=== PATIENT | male | born 2000 | race Hispanic/Latino ===

== ENCOUNTER 2020-07-05 07:23 | Outpatient (CLI) | payer BC ==
[2020-07-05 16:31] LABS: #Eosinphils 0.3 10x3/uL (0.0-0.5); #Monocytes 0.6 10x3/uL (0.0-1.1); #Neutrophils 3.7 10x3/uL (1.5-8.4); %Basophils 0.6 % (0.0-2.0); %Eosinophils 3.5 % (0.0-6.0); %Lymphocytes 35.5 % (18.0-47.0); %Monocytes 8.7 % (0.0-10.0); %Neutrophils 51.3 % (40.0-75.0); Hemoglobin 15.8 g/dL (14.0-18.0); Mean Corpuscular HGB CONC 35.5 G/DL (32.0-36.0); Mean Corpuscular Hemoglobin 30.2 PG (27.0-33.0); Mean Corpuscular Volume 84.9 fl (80.0-100.0); Mean Platelet Volume 12.6 fl (7.4-10.4); Platelet Count 236 10x3/uL (130-400); RBC Distribution Width 11.5 % (11.5-14.5); Red Blood Cell (RBC) Count 5.24 10x6/uL (4.40-5.80); White Blood Cell (WBC) Count 7.2 10x3/uL (4.5-11.0)
[2020-07-06 05:43] LABS: SARS-CoV-2 MS2 Positive; SARS-CoV-2 N Gene Negative; SARS-CoV-2 S Gene Negative; SARS-CoV-2 by NAA Not Detected (NotDetected); SARS-CoV-2 orf1ab Negative
== END 2020-07-05 07:24 | disposition home or self-care (01) ==
LOC: LABBT 07:23
PROVIDERS: ATTEND Orthopaedic Surgery
DX: Z01.812 Encounter for preprocedural laboratory examination (principal); Z20.828 Contact with and (suspected) exposure to other viral communicable diseases; S83.242A Other tear of medial meniscus, current injury, left knee, initial encounter
CPT/HCPCS: 85025; 87635; U0003

== ENCOUNTER 2020-07-08 10:53 | Day surgery (SDC) | payer BC ==
[2020-07-07 10:14] VITALS: BMI 25.0
[2020-07-08] MEDS ORDERED: Dexamethasone 20 MG/5 ML VIAL ONE (12:50)
[2020-07-08] MEDS ORDERED: Ondansetron PF 4 MG/2 ML Vial ONE (12:50)
[2020-07-08] MEDS ORDERED: PROPOFOL 200 MG/20 ML VIAL ONE (12:50)
[2020-07-08] MEDS ORDERED: Fentanyl 100 MCG/2 ML VIAL ONE ×2 (14:51→15:34)
[2020-07-08] MEDS ORDERED: Bupivacaine 0.25% HCL 30 ML VIAL ONE (15:31)
[2020-07-08] MEDS ORDERED: Bupivacaine PF 0.5% 30 ML VIAL ONE (15:31)
[2020-07-08] MEDS ORDERED: Meperidine HCl/PF 25 MG/ML VIAL ONE (16:41)
--- NOTE | 2020-07-10 14:13 | OP ---
DATE OF PROCEDURE: 07/08/2020 PREOPERATIVE DIAGNOSES: 1. Left knee medial meniscus tear with root tear. 2. Left horizontal tear. POSTOPERATIVE DIAGNOSES: 1. 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 2. A horizontal meniscal tear with horizontal cleavage component. PROCEDURE PERFORMED: Medial and lateral meniscectomy. LICENSED OCCUPATIONAL THERAPIST: Leonides Tamayo MD ANESTHESIA: Erich Lu CRNA. The patient received LMA. ESTIMATED BLOOD LOSS: Less than 20 mL. TOURNIQUET TIME: 25 minutes at 300 mmHg. ANTIBIOTICS: Ancef 2 g. IMPLANTS: None. COMPLICATION: None. HISTORY OF PRESENT ILLNESS: Mr. Soriano is a 20-year-old male status post injury to his left knee that has been present for a prolonged period of time. The patient felt like he injured in the past and re-injured it. MRI had evidence of medial lateral meniscus tears as well as concern for a root tear; therefore, I had my partner, Dr. Tamayo available to help me repair his bucket-handle medial meniscus tear. I discussed with the patient the risks and benefits of surgery to include pain, scar, bleeding, infection, damage to vital structures, decreased range of motion and strength, arthritis, need for further surgeries, loss of life or limb, the patient's family understood the risks and benefits of procedure and elected to proceed. DESCRIPTION OF PROCEDURE: Time-out was performed designating the patient's left lower extremity as the operative site based on site, consents, and marking. After time-out, the patient's right upper extremity was prepped and draped in sterile fashion. Tourniquet was left up for a total of 25 minutes. We made an anterior medial incision, dissected down bluntly to the fat pad, ensured that we were in the right good position. We then made our second anterior medial portal under direct visualization more medial to the tendon. We came down, excised on to the fat pad, took pictures of the ACL, the PCL. We looked at the superior fat pad as well as superior to the patellofemoral joint, the medial lateral gutters, which showed no defect. We ooked in the lateral compartment in [id number] position and saw horizontal tear which was slightly unstable. We took our biter and removed the torn component and cleaned it to a stable remnant. There was a horizontal cleavage component. We made sure we debrided to stable remnant for no recurrent tear. After this, we took final pictures and moved medially. Medially, it looked like there was a chronic bucket-handle tear. We could not see the segment of meniscus flip up segment on the posteromedial aspect of the femoral condyle. I used a probe to pull the meniscus into position. A third portal to grass the segment and arthroscopic scissors. We had to switch our view on 2 or 3 occasions to get the great best position to good stump. We cleaned the remnant stump. The root appeared clean and intact. Had a remnant chronic aspect of medial meniscus. After we debrided and removed the final component, we washed, closed, injected Marcaine plain into the joint and in portal sites, let the tourniquet down after 25 minutes and placed nylon stitches. The patient will be discharged home, weightbearing as tolerated. He will follow up in 14 days. The patient will be given pain medications for discharge. My business assistant helped me with the port placement, maneuvering for holding the limb, positioning, and placement of the central patellar portal, help with dissection and closure of the wound. Job ID: [id number] [facility]Deborah
== END 2020-07-08 18:05 | disposition home or self-care (01) ==
LOC: SDC 10:53
PROVIDERS: ATTEND Orthopaedic Surgery
PROC: 0SBD4ZZ Excision of Left Knee Joint, Percutaneous Endoscopic Approach (ICD-10-PCS; principal; 2020-07-08)
DX: S83.212A Bucket-handle tear of medial meniscus, current injury, left knee, initial encounter (principal); S83.282A Other tear of lateral meniscus, current injury, left knee, initial encounter; F17.290 Nicotine dependence, other tobacco product, uncomplicated; X58.XXXA Exposure to other specified factors, initial encounter
CPT/HCPCS: J0690; J1100; J2175; J2405; J2704; J3010; S0020